=== PATIENT | male | born 1955 ===

== ENCOUNTER 2017-10-31 22:55 | Emergency (ER) | payer SELFPAY ==
[2017-10-31 23:02] VITALS: PULSE 78; RESP 18; TEMP 98; O2SAT 98
[2017-10-31 23:07] VITALS: BP 126/75
--- NOTE | 2017-10-31 23:58 | C.PDOC ---
History Of Present Illness 62 year old male is brought in by [facility] for evaluation. As per [facility] patient was walking around [place] looking for his daughter who recently moved, patient does not remember where she lives or a phone number. Patient was brought to the [place] [employer] who are currently trying to locate his daughter. While in the ED patient does not have any physical complaints. Patient is poor historian no further history available. Chief Complaint (Nursing): Altered Mental Status History Per: Patient, EMS History/Exam Limitations: None Onset/Duration Of Symptoms: Hrs Onset Of Symptoms: Cannot Confirm Onset Current Symptoms Are (Timing): Still Present Usual Baseline: Unknown Exacerbating Factor(s): Unknown Use Of Anticoag/Antiplatelets: No Speech Is: Normal Recent travel outside of the [place]: No Additional History Per: Patient, EMS Past Medical History Reviewed: Historical Data, Nursing Documentation, Vital Signs Vital Signs: Last Vital Signs Temp 98 F 10/31/17 22:59 Pulse 78 10/31/17 22:59 Resp 18 10/31/17 22:59 BP 126/75 10/31/17 23:07 Pulse Ox 98 11/01/17 00:21 - Medical History PMH: No Chronic Diseases Surgical History: No Surg Hx Family History: States: Unknown Family Hx - Social History Hx Alcohol Use: No Hx Substance Use: No Review Of Systems Review Of Systems: ROS cannot be obtained secondary to pt's inabilty to answer questions. Physical Exam - Physical Exam Appears: Non-toxic, No Acute Distress Skin: Normal Color, Warm, Dry Head: Atraumatic, Normacephalic Eye(s): bilateral: Normal Inspection Oral Mucosa: Moist Neck: Normal ROM, No Midline Cervical Tenderness, Supple Chest: Symmetrical Cardiovascular: Rhythm Regular Respiratory: Normal Breath Sounds, No Rales, No Rhonchi, No Wheezing Gastrointestinal/Abdominal: Soft, No Tenderness, No Guarding, No Rebound Extremity: Normal ROM, No Tenderness, No Swelling Neurological/Psych: Oriented x3, Normal Speech Gait: Unable To Assess ED Course And Treatment O2 Sat by Pulse Oximetry: 98 (ON RA) Pulse Ox Interpretation: Normal Medical Decision Making Medical Decision Making: Impression: confused and lost looking for daughter Plan: * CT head * Labs * UA * Urine culture Patient's daughter was located, spoke with her who states the patient recently moved in with her ad her . 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 Disposition - Disposition Referrals: [facility] Sandra Trevor, [Non-Staff] - Disposition: HOME/ ROUTINE Disposition Time: 00:15 Condition: GOOD Additional Instructions: IRWIN MORGAN, thank you for letting us take care of you today. Your provider was Sergio Sifuentes DO. The emergency medical care you received today was directed at your acute symptoms. If you were prescribed any medication, please fill it and take as directed. It may take several days for your symptoms to resolve. Return to the Emergency Department if your symptoms worsen, do not improve, or if you have any other problems. Please contact your doctor or call one of the physicians/clinics you have been referred to that are listed on the Patient Visit Information form that is included in your discharge packet. Bring any paperwork you were given at discharge with you along with any medications you are taking to your follow up visit. Our treatment cannot replace ongoing medical care by a primary care provider outside of the emergency department. Thank you for allowing the [facility] team to be part of your care today. Follow up with your primary care doctor for any concerns. Forms: [employer] ([place]) - Clinical Impression Clinical Impression: Adult general medical exam - Scribe Statement The provider has reviewed the documentation as recorded by the Scribe Saqib Stewart All medical record entries made by the Scribe were at my direction and personally dictated by me. I have reviewed the chart and agree that the record accurately reflects my personal performance of the history, physical exam, medical decision making, and the department course for this patient. I have also personally directed, reviewed, and agree with the discharge instructions and disposition.
--- NOTE | 2017-11-03 12:13 | CARD ---
APPROVED REPORT EKG Measurement Heart [id number] <Conclusion> Normal sinus rhythm with sinus arrhythmia Normal ECG
== END 2017-11-01 00:30 | disposition home or self-care (01) ==
LOC: C.ER 22:55
DX: Z04.8 Encounter for examination and observation for other specified reasons (principal)